=== PATIENT | male | born 1965 | race Caucasian/White ===

== ENCOUNTER 2018-03-25 07:20 | Day surgery (SDC) | payer OTHER ==
[2018-03-25] MEDS ORDERED: LIDOCAINE 2% (SDV) 5 ML INJ (08:35)
[2018-03-25] MEDS ORDERED: PROPOFOL 40 ML (08:35)
== END 2018-03-25 12:20 | disposition home or self-care (01) ==
LOC: GIL 07:20
DX: D12.5 Benign neoplasm of sigmoid colon (principal); K64.8 Other hemorrhoids; K64.4 Residual hemorrhoidal skin tags; I10 Essential (primary) hypertension; E11.9 Type 2 diabetes mellitus without complications; J45.909 Unspecified asthma, uncomplicated
CPT/HCPCS: 45380; 88305